=== PATIENT | female | born 1965 | race Caucasian/White ===

== ENCOUNTER 2016-06-12 22:08 | Emergency (ER) | payer OTHER ==
[2016-06-12 22:18] VITALS: BP 143/81; PULSE 73; TEMP 98.1; BMI 26.4
[2016-06-12] MEDS ORDERED: FLUORESCEIN NA 1 EA STRIP ONE (23:13)
[2016-06-12] MEDS ORDERED: TETRACAINE 0.5% OPHTH SOLN 2 ML BOTTLE ONE (23:13)
--- NOTE | 2016-06-12 23:32 | PDOC ---
History of Present Illness - General Chief Complaint: Eye Problem Stated Complaint: EYE PROBLEM Time Seen by Provider: 06/12/16 22:54 - History of Present Illness Initial Comments: 06/13/16 04:39 CHIEF COMPLAINT: watery eyes HISTORY OF PRESENT ILLNESS: 51 yo F with no PMH presents to ED with watery eyes x 1 week and itchy eyes x 2 days. Patient states she went to an spun paste machine operator a week ago and was given lubricating drops. She does report rubbing her eyes a bit in the last 2-3 days. She denies any photophobia, headache, or pain to her temples. No recent travel or sick contacts. PAST MEDICAL HISTORY: Denies past medical history FAMILY HISTORY: Denies SOCIAL HISTORY: Lives at home with son. Denies tobacco, alcohol, illicit drug use. SURGICAL HISTORY: Denies ALLERGIES: No known drug allergies REVIEW OF SYSTEMS General/Constitutional: Denies fever or chills. Denies weakness, weight change. HEENT: "Watery, itchy eyes." Denies change in vision. Denies ear pain or discharge. Denies sore throat. Cardiovascular: Denies chest pain or shortness of breath. Respiratory: Denies cough, wheezing, or hemoptysis. Gastrointestinal: Denies nausea, vomiting, diarrhea or constipation. Denies rectal bleeding. Genitourinary: Denies dysuria, frequency, or change in urination. Musculoskeletal: Denies joint or muscle swelling or pain. Denies neck or back pain. Skin and breasts: Denies rash or easy bruising. PHYSICAL EXAM General Appearance: Well-appearing, appropriately dressed. No apparent distress. HEENT: 20/30 vision bilaterally without glasses. No corneal abrasion visualized on slit lamp exam. Eyes mildly teary. EOMI, PERRLA, normal voice. No conjunctival pallor. No photophobia, scleral icterus. Respiratory/Chest: Lungs CTAB. Cardiovascular: RRR. S1, S2. Musculoskeletal/Extremities: Normal inspection. FROM of all extremities, normal capillary refill. Integumentary: Appropriate color, dry, warm. No cyanosis, erythema, jaundice or rash Neurologic: bias machine operator helper II-XII intact. Fully oriented, alert. Appropriate mood/affect. Motor strength 5/5. No appreciable EOM palsy, facial droop or sensory deficit. Past History - Past Medical History Allergies/Adverse Reactions: Allergies Allergy/AdvReac Type Severity Reaction Status Date / Time No Known Allergies Allergy Verified 06/12/16 22:19 Home Medications: Ambulatory Orders NK [No Known Home Medication] 06/12/16 Diabetes: Yes - Psycho/Social/Smoking Cessation Hx Anxiety: No Suicidal Ideation: No Smoking History: Never smoked Have you smoked in the past 12 months: No Information on smoking cessation initiated: No Hx Alcohol Use: No Drug/Substance Use Hx: No Substance Use Type: None *Physical Exam - Vital Signs Last Vital Signs Temp Pulse Resp BP Pulse Ox 98.1 F 73 18 143/81 98 06/12/16 22:16 06/12/16 22:16 06/12/16 22:16 06/12/16 22:16 06/12/16 22:16 Medical Decision Making - Medical Decision Making 06/13/16 04:43 51 yo F with no PMH presents to ED with bilateral itchy, watery eyes. Exam unremarkable. Advised patient to f/u with filbert grower for further evaluation and to continue using lubricating eye drops as directed by spun paste machine operator. Advised patient of signs and symptoms for return to ER; patient verbalized understanding and agrees to plan. *DC/Admit/Observation/Transfer Diagnosis at time of Disposition: Itchy eyes - Discharge Dispostion Disposition: HOME Admit: No - Referrals Referrals: Daria Moreno MD [Primary Care Provider] - Nacho Mazariegos MD [Staff Physician] - - Patient Instructions Additional Instructions: As discussed, please follow up with ophthalmology tomorrow. Continue using the lubricating eyedrops that your spun paste machine operator gave you. If you experience any sudden vision loss, pain to your eye accompanied by headache, or any new or worsening symptoms, please return to the ER.
== END 2016-06-12 23:36 | disposition home or self-care (01) ==
LOC: JER 22:08
PROC: 4A07X0Z Measurement of Visual Acuity, External Approach (ICD-10-PCS; principal; 2016-06-12)
DX: H57.8 Other specified disorders of eye and adnexa (principal); E11.9 Type 2 diabetes mellitus without complications
CPT/HCPCS: 99281-25